=== PATIENT | female | born 1980 | race Caucasian/White ===

== ENCOUNTER 2020-12-20 10:40 | Emergency (ER) | payer BC ==
[2020-12-20] MEDS ORDERED: Sodium Chloride 0.9% 10 ML Syringe FLUSH PRN (11:07)
[2020-12-20] MEDS ORDERED: Ketorolac 30 MG/ML SDV IVPUSH ONE (11:09)
--- NOTE | 2020-12-20 14:16 | EDM.PDOC ---
ED HPI GENERAL MEDICAL PROBLEM - General Chief Complaint: Abdominal Pain Stated Complaint: LOWER ABDOMINAL PAIN Time Seen by Provider: 12/20/20 10:58 Source of Information: Reports: Patient, RN Notes Reviewed History Limitations: Reports: No Limitations - History of Present Illness INITIAL COMMENTS - FREE TEXT/NARRATIVE: Patient is a 40-year-old female presenting to the emergency department with complaints of an approximate 1 month history of bilateral pelvic pain. She reports she has experienced this pain in the past and it was found to be due to ovarian cysts. She has been taking Depo-Provera shots to treat this, however last month she was 3 weeks late on her injection. She did receive an injection on 28 November. Pain has been present since before she got her injection. She denies any burning with urination or abnormal vaginal discharge. She has not had a period for as long as she has been receiving the Depo-Provera shots. She has tried taking ibuprofen for pain with little relief. Denies any possibility of . She has had no fever, chills, nausea, vomiting, or diarrhea. 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 ED EXAM, RENAL/ - Physical Exam Exam: See Below Exam Limited By: No Limitations General Appearance: Alert, WD/WN, No Apparent Distress Respiratory/Chest: No Respiratory Distress, Lungs Clear, Normal Breath Sounds, No Accessory Muscle Use, Chest Non-Tender Cardiovascular: Normal Peripheral Pulses, Regular Rate, Rhythm, No Edema, No Gallop, No JVD, No Murmur, No Rub GI/Abdominal: Normal Bowel Sounds, Soft, Non-Tender, No Organomegaly, No Distention, No Abnormal Bruit, No Mass Neurological: Alert, Oriented, CN II-XII Intact, Normal Cognition, Normal Gait, Normal Reflexes, No Motor/Sensory Deficits Psychiatric: Normal Affect, Normal Mood Skin Exam: Warm, Dry, Intact, Normal Color, No Rash Course - Vital Signs Last Recorded V/S: Last Vital Signs Temp 97.0 F 12/20/20 10:59 Pulse 90 12/20/20 10:59 Resp 16 12/20/20 10:59 BP 151/96 H 12/20/20 10:59 Pulse Ox 100 12/20/20 10:59 - Orders/Labs/Meds Orders: Active Orders 24 hr Category Date Time Status Peripheral IV Care [RC] . DIRECTED Care 12/20/20 11:07 Active Transvaginal Non OB [US] Stat Exams 12/20/20 11:08 Taken Sodium Chloride 0.9% [Saline Flush] Med 12/20/20 11:07 Active 10 ml FLUSH ASDIRECTED PRN Peripheral IV Insertion Adult [OM.PC] Stat Oth 12/20/20 11:07 Ordered Medication Orders Sodium Chloride (Sodium Chloride 0.9% 10 Ml Syringe) 10 ml FLUSH ASDIRECTED PRN PRN Reason: Keep Vein Open Last Admin: 12/20/20 11:18 Dose: 10 ml Documented by: MATTHEW Labs: Laboratory Tests 12/20/20 12/20/20 12/20/20 Range/Units 10:48 10:48 10:48 WBC 8.14 (3.98-10.04) K/mm3 RBC 4.88 (3.98-5.22) M/mm3 Hgb 15.3 (11.2-15.7) gm/dl Hct 44.1 (34.1-44.9) % MCV 90.4 (79.4-94.8) fl MCH 31.4 (25.6-32.2) pg MCHC 34.7 (32.2-35.5) g/dl RDW Std Deviation 42.3 (36.4-46.3) fL Plt Count 314 (182-369) K/mm3 MPV 8.8 L (9.4-12.3) fl Neut % (Auto) 82.9 H (34.0-71.1) % Lymph % (Auto) 12.9 L (19.3-51.7) % [place] % (Auto) 3.8 L (4.7-12.5) % Eos % (Auto) 0.1 L (0.7-5.8) Baso % (Auto) 0.2 (0.1-1.2) % Neut # (Auto) 6.74 H (1.56-6.13) K/mm3 Lymph # (Auto) 1.05 L (1.18-3.74) K/mm3 [place] # (Auto) 0.31 (0.24-0.36) K/mm3 Eos # (Auto) 0.01 L (0.04-0.36) K/mm3 Baso # (Auto) 0.02 (0.01-0.08) K/mm3 Sodium (136-145) mEq/L Potassium (3.5-5.1) mEq/L Chloride (98-107) mEq/L Carbon Dioxide (21-32) mEq/L Anion Gap (5-15) BUN (7-18) mg/dL Creatinine (0.55-1.02) mg/dL Est Cr Clr Drug Dosing mL/min Estimated GFR (MDRD) (>60) mL/min BUN/Creatinine Ratio (14-18) Glucose (70-99) mg/dL Calcium (8.5-10.1) mg/dL Total Bilirubin (0.2-1.0) mg/dL AST (15-37) U/L ALT (14-59) U/L Alkaline Phosphatase (46-116) U/L C-Reactive Protein (<1.0) mg/dL Total Protein (6.4-8.2) g/dl Albumin (3.4-5.0) g/dl Globulin gm/dL Albumin/Globulin Ratio (1-2) Urine Color Yellow (Yellow) Urine Appearance Clear (Clear) Urine pH 6.5 (5.0-8.0) Ur Specific [place] 1.025 (1.005-1.030) Urine Protein Negative (Negative) Urine Glucose (UA) Negative (Negative) Urine Ketones Negative (Negative) Urine Occult Blood Negative (Negative) Urine Nitrite Negative (Negative) Urine Bilirubin Negative (Negative) Urine Urobilinogen 0.2 (0.2-1.0) Ur Leukocyte Esterase Negative (Negative) Urine HCG, Qual Negative (NEGATIVE) 12/20/20 Range/Units 10:48 WBC (3.98-10.04) K/mm3 RBC (3.98-5.22) M/mm3 Hgb (11.2-15.7) gm/dl Hct (34.1-44.9) % MCV (79.4-94.8) fl MCH (25.6-32.2) pg MCHC (32.2-35.5) g/dl RDW Std Deviation (36.4-46.3) fL Plt Count (182-369) K/mm3 MPV (9.4-12.3) fl Neut % (Auto) (34.0-71.1) % Lymph % (Auto) (19.3-51.7) % [place] % (Auto) (4.7-12.5) % Eos % (Auto) (0.7-5.8) Baso % (Auto) (0.1-1.2) % Neut # (Auto) (1.56-6.13) K/mm3 Lymph # (Auto) (1.18-3.74) K/mm3 [place] # (Auto) (0.24-0.36) K/mm3 Eos # (Auto) (0.04-0.36) K/mm3 Baso # (Auto) (0.01-0.08) K/mm3 Sodium 138 (136-145) mEq/L Potassium 3.7 (3.5-5.1) mEq/L Chloride 105 (98-107) mEq/L Carbon Dioxide 21 (21-32) mEq/L Anion Gap 15.7 H (5-15) BUN 13 (7-18) mg/dL Creatinine 0.8 (0.55-1.02) mg/dL Est Cr Clr Drug Dosing 79.11 mL/min Estimated GFR (MDRD) > 60 (>60) mL/min BUN/Creatinine Ratio 16.3 (14-18) Glucose 109 H (70-99) mg/dL Calcium 8.8 (8.5-10.1) mg/dL Total Bilirubin 1.5 H (0.2-1.0) mg/dL AST 12 L (15-37) U/L ALT 25 (14-59) U/L Alkaline Phosphatase 70 (46-116) U/L C-Reactive Protein <0.2 (<1.0) mg/dL Total Protein 8.2 (6.4-8.2) g/dl Albumin 4.8 (3.4-5.0) g/dl Globulin 3.4 gm/dL Albumin/Globulin Ratio 1.4 (1-2) Urine Color (Yellow) Urine Appearance (Clear) Urine pH (5.0-8.0) Ur Specific [place] (1.005-1.030) Urine Protein (Negative) Urine Glucose (UA) (Negative) Urine Ketones (Negative) Urine Occult Blood (Negative) Urine Nitrite (Negative) Urine Bilirubin (Negative) Urine Urobilinogen (0.2-1.0) Ur Leukocyte Esterase (Negative) Urine HCG, Qual (NEGATIVE) Meds: Medications Generic Name Dose Route Start Last Admin Trade Name Freq PRN Reason Stop Dose Admin Sodium Chloride 10 ml 12/20/20 11:07 12/20/20 11:18 Sodium Chloride 0.9% 10 Ml Syringe FLUSH 10 ml ASDIRECTED PRN Administration Keep Vein Open Discontinued Medications Generic Name Dose Route Start Last Admin Trade Name Freq PRN Reason Stop Dose Admin Ketorolac Tromethamine 30 mg 12/20/20 11:09 12/20/20 11:18 Ketorolac 30 Mg/Ml Sdv IVPUSH 12/20/20 11:10 30 mg ONETIME ONE Administration - Re-Assessments/Exams Free Text/Narrative Re-Assessment/Exam: 12/20/20 14:50 Transvaginal ultrasound shows a mildly prominent endometrium with indistinct margins within the myometrium. Correlate for possible adenomyosis. Otherwise normal pelvic ultrasound. Patient is having no vaginal bleeding whatsoever. Hematology and urinalysis are unremarkable. hCG is negative. Results discussed with patient. She has an appointment scheduled the end of the month with gearman, Dr. Kelly Gutiérrez at [facility] in [place]. I will list her as referral so that she receives a copy of this visit. Of also push the ultrasound images to [facility] in [place] as she should have access to them through there. Recommend that she follow-up with her primary care provider, Lana Marinelli on Tuesday. Discussed return precautions. Discharge instructions as documented. Departure - Departure Time of Disposition: 14:50 Disposition: Home, Self-Care 01 Condition: Good Clinical Impression: Pelvic pain - Discharge Information *PRESCRIPTION DRUG MONITORING PROGRAM REVIEWED*: No *COPY OF PRESCRIPTION DRUG MONITORING REPORT IN PATIENT RHEA: No Instructions: Pelvic Pain, Female Referrals: Sandra Marinelli PA-C [Primary Care Provider] - Kelly Gutiérrez MD [Ordering Only Provider] - Forms: ED Department Discharge Additional Instructions: You were seen in the emergency department for pelvic pain. Work-up included blood work, urinalysis, test, and pelvic ultrasound. Results of your work-up were found to be overall normal with the exception of a mildly prominent endometrium. This is a not likely correlated with your symptoms. Recommend that she continue to use ibuprofen and heat to the area as needed. Keep your appointment as scheduled with Kelly Gutiérrez. I have sent your ultrasound images to [facility] in [place], so she should have access to them through there. Follow-up with your primary care provider on Tuesday. If you should experience any new or worsening symptoms, please do not hesitate to return to the emergency department. Sepsis Event Note (ED) - Focused Exam Vital Signs: Vital Signs Temp Pulse Resp BP Pulse Ox 12/20/20 10:59 97.0 F 90 16 151/96 H 100 - My Orders Last 24 Hours: My Active Orders 12/20/20 11:07 Peripheral IV Care [RC] . DIRECTED Sodium Chloride 0.9% [Saline Flush] 10 ml FLUSH ASDIRECTED PRN Peripheral IV Insertion Adult [OM.PC] Stat 12/20/20 11:08 Transvaginal Non OB [US] Stat - Assessment/Plan Last 24 Hours: My Active Orders 12/20/20 11:07 Peripheral IV Care [RC] . DIRECTED Sodium Chloride 0.9% [Saline Flush] 10 ml FLUSH ASDIRECTED PRN Peripheral IV Insertion Adult [OM.PC] Stat 12/20/20 11:08 Transvaginal Non OB [US] Stat
--- NOTE | 2020-12-21 09:08 | US ---
Pelvic ultrasound: Multiple real-time images were obtained transabdominally and transvaginally. Comparison: Uterus is anteverted. Endometrium shows diffusely irregular endometrial margins. Endometrial thickness is felt to be within normal limits at 1.2 cm. No myometrial abnormality is otherwise appreciated. Right and left ovaries appear within normal limits. No free fluid is seen. Measurements: Right ovary: 2.5 x 1.6 x 1.6 cm Left ovary: 2.5 x 1.7 x 1.2 cm Uterus: Length 9.7 cm, AP height 5.3 cm, transverse width 6.3 cm Impression: 1. Irregular margins of the endometrial cavity. Endometrial thickness is normal at 1.2 cm. Difficult to exclude mild adenomyosis. 2. Other portions of the pelvic ultrasound appear within normal limits. Diagnostic code #2 I agree with preliminary report from [facility], finalized on 12/20/20, 3:15 PM CDT, code 1
== END 2020-12-20 15:11 | disposition home or self-care (01) ==
LOC: JD.ED 10:40
DX: R10.2 Pelvic and perineal pain (principal); Z88.8 Allergy status to other drugs, medicaments and biological substances; Z86.16 Personal history of COVID-19
CPT/HCPCS: 36415; 76830; 80053; 81003; 81025; 85025; 86140; 96374; 99284; J1885